=== PATIENT | female | born 2000 | race Caucasian/White ===

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

== ENCOUNTER 2021-11-01 11:48 | Emergency (ER) | payer OTHER ==
[2021-11-01] MEDS ORDERED: Ketorolac 30 MG/ML SDV IM ONE (12:28)
[2021-11-01] MEDS ORDERED: Ondansetron 4 MG Tab.DIS PO ONE (12:29)
[2021-11-01] MEDS ORDERED: Lactated Ringers 1,000 ML IV ONE (13:50)
[2021-11-01] MEDS ORDERED: fentaNYL 100 MCG/2 ML SDV IVPUSH ONE ×2 (13:50→14:30)
[2021-11-01] MEDS ORDERED: Sodium Chloride 0.9% 10 ML Syringe FLUSH PRN (13:50)
== END 2021-11-01 14:43 ==
LOC: JP.ED 11:48
DX: N83.512 Torsion of left ovary and ovarian pedicle (principal); E66.9 Obesity, unspecified; Z91.011 Allergy to milk products; Z68.37 Body mass index [BMI] 37.0-37.9, adult
CPT/HCPCS: 36415; 76830; 76830-26; 76857; 76857-26; 80048; 81001; 81025; 83605; 85025; 96372; 96374; 96376; 99283; 99285-25; J1885; J3010; J3490; J7120; Q0162

== ENCOUNTER 2022-05-14 11:36 | Emergency (ER) | payer OTHER ==
[2022-05-14] MEDS ORDERED: Sodium Chloride 0.9% 10 ML Syringe FLUSH PRN (13:18)
[2022-05-14] MEDS ORDERED: Ondansetron 4 MG Tab.DIS PO ONE (13:20)
[2022-05-14] MEDS ORDERED: fentaNYL 100 MCG/2 ML SDV IVPUSH ONE (13:20)
[2022-05-14] MEDS ORDERED: Lactated Ringers 1,000 ML IV SCH (13:30)
[2022-05-14 13:49] LABS: ESTIMATED GFR 130 mL/min (>60)
== END 2022-05-14 15:13 | disposition home or self-care (01) ==
LOC: JP.ED 11:36
DX: R10.11 Right upper quadrant pain (principal); E66.9 Obesity, unspecified; Z68.36 Body mass index [BMI] 36.0-36.9, adult; Z79.899 Other long term (current) drug therapy
CPT/HCPCS: 36415; 76705; 80053; 81001; 81025; 83605; 83690; 85025; 96361; 96374; 99284; J3010; J3490; J7120; Q0162

== ENCOUNTER 2022-06-04 08:37 | Day surgery (SDC) | payer OTHER ==
[2022-06-04] MEDS ORDERED: Lactated Ringers 1,000 ML IV SCH (09:45)
[2022-06-04] MEDS ORDERED: Propofol 200 MG/20 ML SDV ONE ×3 (09:54→10:08)
[2022-06-04] MEDS ORDERED: fentaNYL 100 MCG/2 ML SDV ONE (09:54)
[2022-06-04] MEDS ORDERED: Midazolam 1 MG/ML 2 ML SDV ONE (09:54)
[2022-06-04] MEDS ORDERED: Ondansetron 4 MG/2 ML SDV ONE (09:59)
[2022-06-04] MEDS ORDERED: Scopolamine 1.5 MG Transdermal Patch TOP SCH (10:00)
== END 2022-06-04 11:37 | disposition home or self-care (01) ==
LOC: JP.SDS 08:37
PROVIDERS: ATTEND Student in an Organized Health Care Education/Training Program
DX: K29.70 Gastritis, unspecified, without bleeding (principal); F41.9 Anxiety disorder, unspecified; F32.A Depression, unspecified; E66.9 Obesity, unspecified; F90.9 Attention-deficit hyperactivity disorder, unspecified type; Z68.34 Body mass index [BMI] 34.0-34.9, adult; Z91.011 Allergy to milk products; Z79.899 Other long term (current) drug therapy; Z87.891 Personal history of nicotine dependence
CPT/HCPCS: 43239; 45380; 81025; 87081; A9270; J2250; J2405; J2704; J3010; J7120

== ENCOUNTER 2022-06-19 06:57 | Day surgery (SDC) | payer OTHER ==
[2022-06-19] MEDS ORDERED: Ondansetron 4 MG/2 ML SDV ONE (07:05)
[2022-06-19] MEDS ORDERED: Propofol 200 MG/20 ML SDV ONE (07:05)
[2022-06-19] MEDS ORDERED: Rocuronium 50 MG/5 ML Vial ONE (07:05)
[2022-06-19] MEDS ORDERED: Glycopyrrolate 0.2 MG/ML 5 ML MDV ONE (07:05)
[2022-06-19] MEDS ORDERED: Dexamethasone 4 MG/ML SDV ONE (07:05)
[2022-06-19] MEDS ORDERED: Neostigmine Methylsulfate 1 MG/ML 5 ML Syringe ONE (07:05)
[2022-06-19] MEDS ORDERED: fentaNYL 250 MCG/5 ML SDV ONE ×2 (07:05→09:23)
[2022-06-19] MEDS ORDERED: Bupivacaine 0.5%/EPINEPHrine 1:200,000 50 ML MDV ONE (07:07)
[2022-06-19] MEDS ORDERED: Acetaminophen 500 MG Tab PO ONE (07:15)
[2022-06-19] MEDS ORDERED: Lactated Ringers 1,000 ML IV SCH (07:30)
[2022-06-19] MEDS ORDERED: Indocyanine Green 25 MG SDV ONE (07:35)
[2022-06-19] MEDS ORDERED: Scopolamine 1.5 MG Transdermal Patch TOP ONE (07:54)
[2022-06-19] MEDS ORDERED: metroNIDAZOLE/Normal Saline 500 MG in Premix Bag 1 BAG IV ONE (08:30)
[2022-06-19] MEDS ORDERED: cefTRIAXone 2 GM in Sodium Chloride 0.9% 50 ML IV ONE (08:30)
[2022-06-19] MEDS ORDERED: hydrOXYzine HCL 100 MG/2 ML SDV IM ONE (11:07)
[2022-06-19] MEDS ORDERED: fentaNYL 50 MCG/ML SDV IVPUSH ONE (11:30)
[2022-06-19] MEDS ORDERED: oxyCODONE 5 MG Tab PO PRN (12:34)
== END 2022-06-19 16:29 | disposition home or self-care (01) ==
LOC: JP.SDS 06:57
PROVIDERS: ATTEND Student in an Organized Health Care Education/Training Program
DX: K81.1 Chronic cholecystitis (principal); F41.9 Anxiety disorder, unspecified; F32.A Depression, unspecified; Z98.890 Other specified postprocedural states; Z79.899 Other long term (current) drug therapy; Z87.891 Personal history of nicotine dependence; Z91.011 Allergy to milk products
CPT/HCPCS: 81025; 88304; A9270; J0696; J1100; J2405; J2704; J2710; J3010; J3410; J3490; J7120